=== PATIENT | female | born 1960 | race Caucasian/White ===

== ENCOUNTER → 2019-09-02 | Outpatient (CLI) | payer BC | LOC: RAD 13:44 | DX: M47.812 Spondylosis without myelopathy or radiculopathy, cervical region (principal) ==

== ENCOUNTER → 2020-06-21 | Outpatient (CLI) | payer BC | LOC: ULTRA 15:55 | PROVIDERS: ATTEND Nurse Practitioner | DX: D25.9 Leiomyoma of uterus, unspecified (principal); R14.0 Abdominal distension (gaseous) ==